=== PATIENT | female | born 1985 | race Caucasian/White ===

== ENCOUNTER 2016-11-19 02:53 | Inpatient (IN) | payer OTHER ==
[2016-11-19 05:27] LABS: Hematocrit 34 % (35-47); Hemoglobin 10.9 g/dl (12.0-16.0); Mean Corpuscular HGB Conc 32 g/dl (31-36); Mean Corpuscular Hemoglobin 30 pg (27-31); Mean Corpuscular Volume 92 fL (80-97); Mean Platelet Volume 10 um3 (7.4-10.4); Red Blood Count 3.67 10^6/ul (4.0-5.4); Red Cell Distribution Width 15 % (10.5-15); White Blood Count 10.6 10^3/ul (3.5-10.8)
[2016-11-19] MEDS ORDERED: fentaNYL* 50 MCG/ML 2 ML VIAL (100 MCG VIAL) ONE (05:41)
[2016-11-19] MEDS ORDERED: Sodium Citrate/Citric Acid* 15 ML UDC PO PRN (06:24)
[2016-11-19] MEDS ORDERED: Phenylephrine IV* 40 MCG/ML 10 ML SYRINGE IV PUSH PRN ×2 (06:24)
[2016-11-19] MEDS ORDERED: Famotidine TAB* 20 MG PO PRN (06:24)
[2016-11-19] MEDS ORDERED: EPHEDrine (Pressors)* 50 MG/ML VIAL IV PUSH PRN ×2 (06:24)
[2016-11-19] MEDS ORDERED: OBEPIDURAL* 250 ML EPIDURAL SCH (07:00)
[2016-11-19] MEDS ORDERED: Acetaminophen TAB* 325 MG PO PRN (08:00)
[2016-11-19] MEDS ORDERED: Witch Hazel PAD* JAR TOPICAL PRN (08:00)
[2016-11-19] MEDS ORDERED: Dibucaine 1% 28.35 GM TUBE PR PRN (08:00)
[2016-11-19] MEDS: Ibuprofen TAB* 600 MG PO PRN ×3 (10:03→22:39)
[2016-11-19] MEDS: Docusate CAP* 100 MG PO SCH ×2 (14:39→20:45)
[2016-11-20] MEDS: Ibuprofen TAB* 600 MG PO PRN ×3 (04:44→20:10)
[2016-11-20 07:36] LABS: Hematocrit 32 % (35-47); Hemoglobin 10.3 g/dl (12.0-16.0); Mean Corpuscular HGB Conc 33 g/dl (31-36); Mean Corpuscular Hemoglobin 29 pg (27-31); Mean Corpuscular Volume 90 fL (80-97); Mean Platelet Volume 10 um3 (7.4-10.4); Red Blood Count 3.53 10^6/ul (4.0-5.4); Red Cell Distribution Width 16 % (10.5-15); White Blood Count 11.4 10^3/ul (3.5-10.8)
[2016-11-20] MEDS ORDERED: Ferrous Gluconate TAB* 324 MG TAB PO SCH (09:00)
[2016-11-20] MEDS: Docusate CAP* 100 MG PO SCH ×3 (09:02→20:10)
[2016-11-21 08:01] VITALS: BP 119/64
[2016-11-21] MEDS: Docusate CAP* 100 MG PO SCH (08:07)
[2016-11-21] MEDS: Ibuprofen TAB* 600 MG PO PRN (08:09)
[2016-11-21] MEDS ORDERED: Tetan/Diph/Pertus SYR(Tdap)* 0.5 ML SYR(BOOSTRIX) use SYR IM ONE (09:46)
== END 2016-11-21 10:49 | disposition home or self-care (01) | DRG 560 ==
LOC: MCHOBOUT 02:53 → MCHOB 05:05
PROVIDERS: ADMIT Nurse Practitioner; ATTEND Nurse Practitioner
PROC: 10E0XZZ Delivery of Products of Conception, External Approach (ICD-10-PCS; principal; 2016-11-19)
PROC: 0HQ9XZZ Repair Perineum Skin, External Approach (ICD-10-PCS; 2016-11-19)
PROC: 10907ZC Drainage of Amniotic Fluid, Therapeutic from Products of Conception, Via Natural or Artificial Opening (ICD-10-PCS; 2016-11-19)
DX: O48.0 Post-term pregnancy (principal); O32.6XX0 Maternal care for compound presentation, not applicable or unspecified; O70.0 First degree perineal laceration during delivery; Z3A.40 40 weeks gestation of pregnancy; Z37.0 Single live birth
CPT/HCPCS: 36415; 85025; 86850; 86900; 86901; A9270-GY; J3010

== ENCOUNTER 2022-06-12 19:35 | Inpatient (IN) ==
[2022-06-12] MEDS ORDERED: Lactated Ringers 1000 ml BAG 1,000 ML IV ONE ×2 (19:40→21:12)
[2022-06-12] MEDS ORDERED: Buffered Lidocaine 1% SYRIN 1 ml INTRADERM ONE (19:40)
[2022-06-12] MEDS ORDERED: Lactated Ringers 1000 ml BAG 1,000 ML IV SCH (20:00)
[2022-06-12 20:17] LABS: ABS Basophils 0.1 10^3/ul (0-0.2); ABS Eosinophils 0.1 10^3/ul (0-0.6); ABS Lymphocytes 1.3 10^3/ul (1.0-4.8); ABS Monocytes 0.9 10^3/ul (0-0.8); ABS Neutrophils 10.9 10^3/ul (1.5-7.7); Eosinophil % 0.9 %; Hematocrit 36 % (35-47); Hemoglobin 11.7 g/dL (12.0-16.0); Mean Corpuscular HGB Conc 33 g/dL (31-36); Mean Corpuscular Hemoglobin 30 pg (27-31); Mean Corpuscular Volume 91 fL (80-97); Mean Platelet Volume 9.9 fL (7.4-10.4); Platelet Count 191 10^3/uL (150-450); Red Blood Count 3.89 10^6 /uL (3.70-4.87); Red Cell Distribution Width 16 % (10-15); White Blood Count 13.3 10^3/uL (3.5-10.8)
[2022-06-12] MEDS ORDERED: OBEPIDURAL (200 ML) 200 ML EPIDURAL ONE (20:23)
[2022-06-12] MEDS ORDERED: Bupivacaine 0.25% SDV PF 10 ML VIAL INJ ONE (20:24)
[2022-06-12] MEDS ORDERED: Oxytocin in LR 20,000 MILLI.UNIT/1,000 ML BAG IV ONE (20:33)
[2022-06-12] MEDS ORDERED: Sodium Citrate/Citric Acid LIQ 15 ML UDC PO PRN (21:12)
[2022-06-12] MEDS ORDERED: Phenylephrine 40 mcg/mL 10mL (400mcg) SYRINGE IV PUSH PRN ×2 (21:12)
[2022-06-12] MEDS ORDERED: OBEPIDURAL (200 ML) 200 ML EPIDURAL SCH (22:00)
[2022-06-12 22:30] LABS: Urine Appearance Cloudy; Urine Bilirubin Negative (Negative); Urine Blood Negative (Negative); Urine Color Yellow; Urine Glucose Negative (Negative); Urine Ketones Negative (Negative); Urine Nitrite Negative (Negative); Urine Protein Negative (Negative); Urine Specific Gravity 1.021 (1.002-1.030); Urine Urobilinogen Negative (Negative)
[2022-06-12 22:33] LABS: Urine Benzodiazepine Screen None Detected (None Detect); Urine Cannabinoids Screen None Detected (None Detect); Urine Opiates Screen None Detected (None Detect)
[2022-06-13] MEDS ORDERED: Methylergonovine 0.2 mg AMPULE 1 ml AMP ONE (02:24)
[2022-06-13] MEDS ORDERED: Glycerin ADULT 2.4 gm SUPP PR PRN (02:33)
[2022-06-13] MEDS ORDERED: Methylergonovine 0.2 mg AMPULE 1 ml AMP IM ONE (02:33)
[2022-06-13] MEDS ORDERED: Dibucaine 1% OINT 28.35 GM TUBE PR PRN (02:33)
[2022-06-13] MEDS ORDERED: Witch Hazel PAD JAR TOPICAL PRN (02:33)
[2022-06-13] MEDS ORDERED: Oxytocin in LR 20,000 MILLI.UNIT/1,000 ML BAG IV SCH (02:45)
[2022-06-13 15:12] LABS: ABS Eosinophils 0.2 10^3/ul (0-0.6); ABS Lymphocytes 1.6 10^3/ul (1.0-4.8); ABS Monocytes 0.8 10^3/ul (0-0.8); ABS Neutrophils 10.4 10^3/ul (1.5-7.7); Eosinophil % 1.2 %; Hematocrit 29 % (35-47); Hemoglobin 9.7 g/dL (12.0-16.0); Lymphocyte % 12.1 %; Mean Corpuscular HGB Conc 33 g/dL (31-36); Mean Corpuscular Hemoglobin 31 pg (27-31); Mean Corpuscular Volume 93 fL (80-97); Mean Platelet Volume 10.1 fL (7.4-10.4); Platelet Count 154 10^3/uL (150-450); Red Blood Count 3.16 10^6 /uL (3.70-4.87); Red Cell Distribution Width 16 % (10-15)
[2022-06-14 07:57] VITALS: BP 102/67
== END 2022-06-14 13:36 | disposition home or self-care (01) | DRG 560 ==
LOC: MCHOBOUT 19:35 → MCHOB 19:52
PROVIDERS: ADMIT Midwife; ATTEND Midwife